=== PATIENT | female | born 1990 | race Two or more races ===

== ENCOUNTER 2017-02-01 02:51 | Emergency (ER) | payer SELFPAY ==
[~2017-02-01] VITALS: Ht 172.7 cm; Wt 115.7 kg
--- NOTE | 2017-02-01 02:51 | NUR ---
[facility] TO ER BED 5
[2017-02-01 02:55] VITALS: BP 161/90
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
--- NOTE | 2017-02-01 03:21 | NUR ---
Patient being evaluated by physician at bedside.
[2017-02-01] MEDS ORDERED: KETOROLAC 60 MG/2 ML VIAL IM ONE (03:25)
[2017-02-01] MEDS ORDERED: MORPHINE SULFATE 4 MG/ML SYR IM ONE (04:05)
[2017-02-01 04:33] VITALS: BP 138/79
--- NOTE | 2017-02-01 04:33 | NUR ---
Patient discharged with v/s stable. Written and verbal after care instructions given and explained. Patient alert, oriented and verbalized understanding of instructions. Ambulatory with steady gait. All questions addressed prior to discharge. ID band removed. Patient advised to follow up with PMD. Rx of NORCO, MOTRIN given. Patient educated on indication of medication including possible reaction and side effects. Opportunity to ask questions provided and answered.
== END 2017-02-01 04:33 | disposition home or self-care (01) ==
LOC: MED 02:52
DX: S13.4XXA Sprain of ligaments of cervical spine, initial encounter (principal); M54.5 Low back pain; Z88.0 Allergy status to penicillin; Z98.890 Other specified postprocedural states; V89.2XXA Person injured in unspecified motor-vehicle accident, traffic, initial encounter; Y93.89 Activity, other specified; Y92.89 Other specified places as the place of occurrence of the external cause; Y99.8 Other external cause status
CPT/HCPCS: 96372; 99284; J1885; J2270